=== PATIENT | female | born 1965 | race American Indian/Alaskan Native ===

== ENCOUNTER 2016-09-25 13:21 | Outpatient (CLI) | payer OTHER | END 2016-09-25 13:22 | disposition home or self-care (01) | LOC: LABHHL 13:21 | PROVIDERS: ATTEND Surgery | DX: C50.911 Malignant neoplasm of unspecified site of right female breast (principal) | CPT/HCPCS: 88305; 88361 ==

== ENCOUNTER 2016-10-07 13:08 | Outpatient (CLI) | payer MEDICAID ==
--- NOTE | 2016-10-08 16:14 | Magnetic Resonance Report ---
BILATERAL BREAST MRI WITHOUT AND WITH CONTRAST: 10/07/16 13:08:00 CLINICAL: Newly diagnosed right breast cancer. Status post right ultrasound needle biopsy on 09/25/16. A mass at 10 o'clock 1 cm from the nipple with pathologic diagnosis of invasive carcinoma of no special type, Emmalena III/III and a mass at 10 o'clock 7 cm from the nipple with pathologic diagnosis of invasive carcinoma of no special type, Letitia III/III. COMPARISON:Right mammograms from 09/25/16 and 09/09/16.. TECHNIQUE: Axial 1.0-mm T1 without, axial high resolution 2.0-mm T2 and axial 1.0-mm dynamic Vibrant high-resolution postcontrast T1 fat saturation sequences on a 1.5 Leslie magnet. The examination was performed with an 8 channel dedicated [employer] breast coil. Post processing with CAD and subtraction was performed on an [employer] workstation. 13.0 cc of Multihance was injected without incident for the contrast portion of the exam. Consent was obtained prior to the administration of the contrast. FINDINGS: Right: Minimal background parenchymal enhancement. An irregular enhancing mass at 9 o'clock 2.5 cm from the nipple measures 17.3 x 16.1 x 14.1 mm. It contains a biopsy clip and correlates with a known cancer. The mass demonstrates heterogeneous enhancement with mixed kinetics, 132% peak enhancement and 15% type III washout. A second irregular enhancing mass at 9:30 o'clock 7.9 cm from the nipple measures 11.0 x 11.0 x 10.0 mm. It contains a biopsy clip and correlates with the known second cancer. The mass demonstrates heterogeneous enhancement with mixed kinetics, 179% peak enhancement and 12% type III washout. No other mass or suspicious enhancement of the right breast. No suspicious right axillary or right internal mammary lymph nodes. Left: Minimal background parenchymal enhancement. No mass or suspicious enhancement of the left breast. No suspicious left axillary or left internal mammary lymph nodes. IMPRESSION: Two known right breast cancers and no additional suspicious lesions of either breast. No suspicious lymph nodes. RIGHT BI-RADS 6 -- Known Cancer LEFT BI-RADS 1 -- Negative
== END 2016-10-07 13:09 | disposition home or self-care (01) ==
LOC: SPVIMAG 13:08
PROVIDERS: ATTEND Surgery
DX: C50.411 Malignant neoplasm of upper-outer quadrant of right female breast (principal)
CPT/HCPCS: 0159T; A9577; C8908; 77059